=== PATIENT | male | born 1945 | race Caucasian/White ===

== ENCOUNTER 2016-10-28 12:50 | Inpatient (IN) | payer MEDICARE ==
[2016-10-28] MEDS ORDERED: NALOXONE 0.4 MG/ML 1 ML VIAL IV PRN (12:54)
--- NOTE | 2016-10-28 12:58 | ED ---
Neuro HPI - General Stated Complaint: CVA, TRANSFERED FROM [facility] Time Seen by Provider: 10/28/16 12:52 - History of Present Illness Is the patient presenting with stroke symptoms?: Yes Initial Comments: Patient presents with right-sided weakness. He was transferred from another facility. He had laboratory studies a CAT scan done already. They do not reveal any acute abnormalities. Patient complains of right-sided weakness which began last night and got progressively worse. The transferring facility did not feel he was a candidate for TPA. Patient denies any fever, chills, chest pain or shortness of breath. He has no belly or back pain. He has no nausea or vomiting. He has no change in vision or hearing. He has no neck pain or stiffness. He does state that he has right-sided weakness. - Related Data Allergies/Adverse Reactions: Allergies Allergy/AdvReac Type Severity Reaction Status Date / Time No Known Allergies Allergy Verified 10/28/16 12:57 Review of Systems ROS Statement: Those systems with pertinent positive or pertinent negative responses have been documented in the HPI. ROS Other: All systems not noted in ROS Statement are negative. General Exam General appearance: alert, in no apparent distress Head exam: Present: atraumatic, normocephalic, normal inspection Eye exam: Present: normal appearance, PERRL, EOMI. Absent: scleral icterus, conjunctival injection, periorbital swelling ENT exam: Present: normal exam, mucous membranes moist Neck exam: Present: normal inspection. Absent: tenderness, meningismus, lymphadenopathy Respiratory exam: Present: normal lung sounds bilaterally. Absent: respiratory distress, wheezes, rales, rhonchi, stridor Cardiovascular Exam: Present: regular rate, normal rhythm, normal heart sounds. Absent: systolic murmur, diastolic murmur, rubs, gallop, clicks GI/Abdominal exam: Present: soft, normal bowel sounds. Absent: distended, tenderness, guarding, rebound, rigid Extremities exam: Present: normal inspection, full ROM, normal capillary refill. Absent: tenderness, pedal edema, joint swelling, calf tenderness Back exam: Present: normal inspection Neurological exam: Present: alert, oriented X3, other (Right-sided weakness) Psychiatric exam: Present: normal affect, normal mood Skin exam: Present: warm, dry, intact, normal color. Absent: rash Disposition Clinical Impression: CVA (cerebral vascular accident) Disposition: ADMITTED IP TO THIS HOSP Condition: Serious Time of Disposition: 12:58
[2016-10-28] MEDS ORDERED: HYDROcodone/APAP 5-325MG 1 EACH TAB PO PRN (17:36)
[2016-10-28] MEDS: NICOTINE 14MG/24HR PATCH TRANSDERM SCH (20:36)
[2016-10-28] MEDS: ASPIRIN 325 MG TAB PO SCH (20:36)
[2016-10-28] MEDS: PANTOPRAZOLE 40 MG TABLET PO SCH (20:36)
[2016-10-28] MEDS ORDERED: FAMOTIDINE 20 MG TAB PO SCH (21:00)
[2016-10-28 21:19] VITALS: BMI 31.5
--- NOTE | 2016-10-28 21:37 | HP ---
DATE OF ADMISSION: 10/28/2016 CHIEF COMPLAINT: Weakness of the right side and dysarthria. HISTORY OF PRESENT ILLNESS: This 70 -year-old gentleman with a past medical history of multiple medical problems including myocardial infarction, CAD/stent, history of nicotine dependence and heavy alcohol intake not being followed by any primary care physician in the outpatient setting, apparently living in [place]. The patient noticing significant weakness this morning while awake and the patient had right-sided weakness. The patient had some dysarthria also. The weakness lasted last night and progressively got worsened. The patient was taken to [facility] this morning and the patient was felt to not be a candidate for TPA and subsequently because of lack of neurologist, the patient was transferred to [facility] and admitted for further evaluation and treatment. There is no history of fever, rigors, no history of headache, loss of consciousness or seizures. Past medical history of myocardial infarction, CAD/stent, history of ETOH, history of nicotine dependence. Medications are: 1. Multivitamins 1 p.o. daily. 3. Biotin 5 mg daily. ALLERGIES: None. FAMILY HISTORY: No history of heart disease or strokes in the family. SOCIAL HISTORY: History of smoking on a regular basis. REVIEW OF SYSTEMS: ENT: No diminishing hearing. Diminished vision. CARDIOVASCULAR SYSTEM: No angina or palpitations. RESPIRATORY: As mentioned earlier. GI: As mentioned earlier. GENITOURINARY: No dysuria. CENTRAL NERVOUS SYSTEM: As mentioned earlier. MUSCULOSKELETAL: As mentioned earlier. HEMATOLOGY/ONCOLOGY: No history of anemia. ENDOCRINE: No history of diabetes or hypothyroidism. CONSTITUTIONAL: As mentioned earlier. DERMATOLOGY: Negative. RHEUMATOLOGY: Negative. PSYCHIATRY: as mentioned earlier. PHYSICAL EXAMINATION: The patient is alert and oriented times three. Pulse 88, blood pressure 140/80, respiratory rate 16, temperature 97.2, pulse ox 94% on room air. HEENT: Conjunctivae normal. NECK: No jugular venous distention. CARDIOVASCULAR: S1, S2 muffled. RESPIRATORY : Breath sounds diminished at the bases. A few scattered rhonchi and crackles. ABDOMEN: Soft. Nontender. No mass palpable. LEGS: No edema. No swelling. Nervous system: Higher functions as mentioned earlier. Otherwise, upper motor neuron facial palsy on the right side present. Dysarthria present. Otherwise significant weakness of the right upper and lower limbs. Upper limbs are grade 0. Lower limbs grade 1, especially in the distal right leg. Otherwise no sensory abnormalities. Pulses are diminished. SKIN: No ulcers, rash or bleeding. LYMPHATICS: No lymph nodes palpable in the neck, axillae or groin. JOINTS: No active deforming arthropathy. LABS: Not available. ASSESSMENT: 1. Acute weakness and hemiplegia of the right side caused by left hemispheric lesion with acute stroke and acute cerebrovascular accident. 2. Dysarthria. 3. Gait dysfunction. 4. History of noncompliance. 5. History of coronary artery disease and stent. 6. History of myocardial infarction. 7. History of nicotine dependence. 8. History of ETOH. RECOMMENDATIONS AND DISCUSSION: In this 70-year-old gentleman who presented with multiple complex medical issues, we will monitor the patient closely. Continue the current medications. Continue symptomatic treatment. Otherwise, at this time, I recommend antiplatelet agents and I would also recommend speech pathology swallow evaluation. Other than that, neurology consultation, work up. Guarded prognosis because of multiple complex medical issues. Further recommendations to follow. I would also recommend the patient follow-up closely with primary physician. The importance of compliance stressed. Smoking and alcohol cessation also recommended. See orders for further details. Deep venous thrombosis prophylaxis. Further recommendations to follow. MTDD
[2016-10-28] MEDS: MELATONIN 3 MG TABLET PO SCH (23:36)
[2016-10-28] MEDS: HEPARIN SODIUM,PORCINE 5,000 UNIT/ML 1 ML VIAL SQ SCH (23:36)
--- NOTE | 2016-10-28 23:38 | P.CNNES ---
History of Present Illness Consult date: 10/28/16 Reason for Consult: Patient admitted with right sided weakness. History of Present Illness: This patient is a 70-year-old right-handed white male who apparently yesterday noted sudden symptoms of right-sided arm weakness and dysarthric speech. He did not seek any medical attention yesterday but did decide to go to the local emergency room in [facility]. Patient was evaluated in the emergency room at [facility] this morning. The ER physician there deemed him not to be a candidate for TPA and subsequently was transferred to [facility] for a complete neurological workup. Patient denies any previous history of TIA or stroke. Apparently computed tomography scan of the brain done at [facility] failed to reveal any acute changes. Patient states he has not been followed up with a regular primary care physician for years. 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 He is a poor historian and also has not been careful in taking care of his health over the last several years. He has a strong history of underlying alcohol abuse and nicotine dependence some. We reviewed the stroke risk factors with the patient today including smoking and myocardial infarction with heart disease. We would recommend that he be on 1 aspirin daily for secondary stroke prevention. Patient states that he continues to have significant weakness on his right side. He is unable to use his right arm. His speech is quite slurred today on examination. He also has a right facial droop. The patient is now admitted and neurology has been consulted for further evaluation and recommendations. Review of Systems Constitutional: Denies chills, Denies fever Eyes: denies blurred vision, denies pain Ears, nose, mouth and throat: Denies headache, Denies sore throat Cardiovascular: Denies chest pain, Denies shortness of breath Respiratory: Denies cough Gastrointestinal: Denies abdominal pain, Denies diarrhea, Denies nausea, Denies vomiting Musculoskeletal: Denies myalgias Integumentary: Denies pruritus, Denies rash Neurological: Reports change in mentation, Reports change in speech, Reports confusion, Reports paralysis, Reports tingling, Denies numbness, Denies weakness Psychiatric: Denies anxiety, Denies depression Endocrine: Denies fatigue, Denies weight change Past Medical History Past Medical History: Myocardial Infarction (DC) Additional Past Medical History / Comment(s): 4 HEART STENTS Last Myocardial Infarction Date:: 2002 History of Any Multi-Drug Resistant Organisms: None Reported Past Surgical History: Heart Catheterization, Heart Catheterization With Stent Date of Last Stent Placement:: 2002 Past Psychological History: No Psychological Hx Reported Smoking Status: Current every day smoker Past Alcohol Use History: Heavy Past Drug Use History: None Reported - Past Family History Mother Family Medical History: Myocardial Infarction (DC) Medications and Allergies Home Medications Medication Instructions Recorded Confirmed Type Biotin 5 mg PO DAILY 10/28/16 10/28/16 History Nisha-C 1 tab PO DAILY 10/28/16 10/28/16 History Multivitamins, Thera [Multivitamin 1 tab PO DAILY 10/28/16 10/28/16 History (formulary)] Allergies Allergy/AdvReac Type Severity Reaction Status Date / Time No Known Allergies Allergy Verified 10/28/16 13:07 Physical Examination - Vital Signs Vital Signs: Vital Signs Temp Pulse Pulse Resp BP BP BP 10/28/16 19:33 76 18 152/82 10/28/16 17:08 84 16 149/86 10/28/16 16:38 96.2 F L 80 18 171/82 200/124 10/28/16 16:31 73 16 10/28/16 13:18 88 16 146/80 Pulse Ox 10/28/16 19:33 94 L 10/28/16 17:08 97 10/28/16 16:38 98 10/28/16 16:31 100 10/28/16 13:18 94 L Intake and Output 10/28/16 10/28/16 10/28/16 06:59 14:59 22:59 Other: Weight 99.79 kg Patient Weight 10/29/16 06:59 Weight 99.79 kg - Constitutional General appearance: average body habitus, cooperative - EENT EENT: PERRL, mucous membranes moist - Respiratory Respiratory: lungs clear, normal breath sounds - Cardiovascular Cardiovascular: regular rate, normal S1, normal S2 Extremities: no peripheral edema bilaterally - Gastrointestinal Gastrointestinal: normoactive bowel sounds - Integumentary Integumentary: normal - Neurologic Cranial nerve examination: PERRL, EOMI, VFF, V1/V2/V3 grossly intact, tongue midline, intact gag reflex, intact corneal reflex, facial droop (Patient has a right upper motor neuron facial weakness.), normal palatal elevation Speech examination: intact Sensorimotor examination: intact Motor examination - right side: 08/03: biceps, triceps, wrist flexion, wrist extension, animation producer, hip flexors, knee extensors, dorsiflexion, toe extension (EHL) , plantarflexion Motor examination - left side: 5: biceps, triceps, wrist flexion, wrist extension, animation producer, hip flexors, knee extensors, dorsiflexion, toe extension (EHL) , plantarflexion Detailed sensory examination: intact Reflex and gait examination: intact Reflexes: 1+: ankle, bicep, knee, tricep - Musculoskeletal Musculoskeletal: no pain - Psychiatric Psychiatric: mood/affect appropriate, cooperative Assessment and Plan (1) Acute ischemic left middle cerebral artery (MCA) stroke Status: Acute Code(s): I63.512 - CEREB INFRC D/T UNSP OCCLS OR STENOS OF LEFT MID CEREB ART (2) Dysarthria Status: Acute Code(s): R47.1 - DYSARTHRIA AND ANARTHRIA (3) Hyperlipidemia Status: Acute Code(s): E78.5 - HYPERLIPIDEMIA, UNSPECIFIED (4) Coronary artery disease Status: Acute Code(s): I25.10 - ATHSCL HEART DISEASE OF [place] CORONARY ARTERY W/O ANG PCTRS (5) Nicotine dependence Status: Acute Code(s): F17.200 - NICOTINE DEPENDENCE, UNSPECIFIED, UNCOMPLICATED Plan: This patient is a 70-year-old male who was admitted to hospital today with symptoms of acute right-sided weakness. His symptoms began yesterday. He was evaluated in the emergency room at [facility] earlier this morning. The ER physician there deemed him not to be a candidate for TPA. He was outside of the 3 hour TPA window. He underwent a computed tomography scan which was reported to be negative for any acute changes. He was transferred to [facility] for further neurological workup. His neurological exam findings at this time indicate dense right-sided hemiparesis along with right facial droop. He has a dysarthric speech. This patient has suffered an acute left MCA stroke. We have recommended a complete stroke evaluation for the patient. We recommend placing him on aspirin therapy for secondary stroke prevention. We advised him to find a primary care physician for close medical checkup and follow-up once discharged. He is advised to seek medical attention for his alcohol abuse history. He is advised on smoking and alcohol cessation programs that would be beneficial for him. His overall prognosis at this time remains very guarded due to multiple complex medical issues. We will continue close neurological follow-up with the patient during this admission. As noted his overall prognosis at this time remains very guarded. Time with Patient: Greater than 30
[2016-10-29 02:46] LABS: Appearance,Urine Clear (Clear); Bilirubin,Urine Negative (Negative); Glucose,Urine (UA) Negative (Negative); Ketones,Urine Negative (Negative); Leukocyte Esterase,Urine Negative (Negative); Nitrite,Urine Negative (Negative); PH, Urine 7.5 (5.0-8.0); Protein,Urine Negative (Negative); Specific Gravity,Urine 1.014 (1.001-1.035); UA Billing (MACRO vs. MICRO) CHEM
[2016-10-29 06:49] LABS: Basophils # (A) 0.1 k/uL (0-0.2); Basophils % (A) 1 %; CH 32.1; CHCM 33.6; Eosinophils # (A) 0.2 k/uL (0-0.7); Eosinophils % (A) 3 %; HCT 47.7 % (39.0-53.0); HDW 2.36; HGB 15.7 gm/dL (13.0-17.5); Luc # (Auto) 0.17; Luc % (Auto) 2; Lymphocytes # (A) 2.3 k/uL (1.0-4.8); Lymphocytes % (A) 32 %; MCH 31.7 pg (25.0-35.0); MCV 95.9 fL (80.0-100.0); Mean Platelet Volume 7.4; Monocytes # (A) 0.5 k/uL (0-1.0); Monocytes % (A) 7 %; Neutrophils # (A) 3.9 k/uL (1.3-7.7); Neutrophils % (A) 55 %; RBC 4.97 m/uL (4.30-5.90); RDW 13.3 % (11.5-15.5); WBC 7.2 k/uL (3.8-10.6)
[2016-10-29 07:01] LABS: Anion Gap 8 mmol/L; Blood Urea Nitrogen 14 mg/dL (9-20); Carbon Dioxide 27 mmol/L (22-30); Chloride 104 mmol/L (98-107); Cholesterol 211 mg/dL (<200); Glucose 107 mg/dL (74-99); HDL Cholesterol 49 mg/dL (40-60); Non-African American GFR(MDRD) >60 (>60 ml/min/1.73 sqM); Potassium 4.4 mmol/L (3.5-5.1); Sodium 139 mmol/L (137-145); Triglycerides 136 mg/dL (<150)
[2016-10-29] MEDS: PANTOPRAZOLE 40 MG TABLET PO SCH (07:29)
--- NOTE | 2016-10-29 08:39 | US ---
EXAMINATION TYPE: US carotid duplex BILAT DATE OF EXAM: 10/29/2016 8:12 AM COMPARISON: NONE CLINICAL HISTORY: left hemispheric stroke.. EXAM MEASUREMENTS: RIGHT: Peak Systolic Velocity (PSV) cm/sec ----- Right CCA: 90.0 ----- Right ICA: 82.3 ----- Right ECA: 75.7 ICA/CCA ratio: 0.9 RIGHT: End Diastole cm/sec ----- Right CCA: 18.6 ----- Right ICA: 14.2 ----- Right ECA: 14.2 LEFT: Peak Systolic Velocity (PSV) cm/sec ----- Left CCA: 85.3 ----- Left ICA: 65.9 ----- Left ECA: 63.6 ICA/CCA ratio: 0.8 LEFT: End Diastole cm/sec ----- Left CCA: 18.0 ----- Left ICA: 12.8 ----- Left ECA: 11.3 VERTEBRALS (direction of flow): Right Vertebral: Antegrade Left Vertebral: Antegrade No significant stenosis seen, no elevated velocities, mild bilateral plaque noted. IMPRESSION: I DO NOT SEE EVIDENCE OF A HEMODYNAMICALLY SIGNIFICANT STENOSIS IN EITHER CAROTID SYSTEM. Criteria for Assigning % of Stenosis / Diameter reduction (Estimation based on the indirect measurements of the internal carotid artery velocities (ICA PSV). 1. Normal (no stenosis)=ICA PSV < 125 cm/s: ratio < 2.0: ICA EDV<40 cm/s. 2. Less than 50% stenosis=ICA PSV < 125 cm/s: ratio < 2.0: ICA EDV<40 cm/s. 3. 50 to 69% stenosis=ICA PSV of 125 to 230 cm/s: ration 2.0 ? 4.0: ICA EDV 40-100 cm/s. 4. Greater than 70% stenosis to near occlusion= ICA PSV > 230 cm/s: ratio > 4.0: ICA EDV > 100 cm/s. 5. Near occlusion= ICA PSV velocities may be low or undetectable: variable ratio and ICA EDV. 6. Total occlusion=unable to detect flow.
[2016-10-29] MEDS: ASPIRIN 325 MG TAB PO SCH (10:09)
[2016-10-29] MEDS: NICOTINE 14MG/24HR PATCH TRANSDERM SCH (10:10)
[2016-10-29] MEDS: MULTIVITAMINS, THERA 1 EACH TAB PO SCH (10:10)
[2016-10-29] MEDS: THIAMINE 100 MG TAB PO SCH (10:10)
[2016-10-29] MEDS: FOLIC ACID 1 MG TAB PO SCH (10:10)
[2016-10-29] MEDS: HEPARIN SODIUM,PORCINE 5,000 UNIT/ML 1 ML VIAL SQ SCH ×2 (10:11→20:04)
[2016-10-29] MEDS: SODIUM CHLORIDE 0.9% 1,000 ML IV SCH (12:15)
--- NOTE | 2016-10-29 14:09 | XR ---
EXAMINATION TYPE: XR chest 1V portable DATE OF EXAM: 10/29/2016 2:04 PM COMPARISON: NONE HISTORY: Shortness of breath TECHNIQUE: Single frontal view of the chest is obtained. FINDINGS: Prominence of the left hilum which may be slightly related to positioning. No pleural effu lorraine or pneumothorax. No overt failure. Underlying COPD suspected. There is thoracic aortic ectasia a nd atherosclerotic changes. Arthropathy of the shoulders. IMPRESSION: 1. No evidence of focal consolidation. Underlying COPD the suspected. Additionally there is prominenc e of left hilum which could be related to aortic ectasia. Underlying adenopathy or mass Short-term follow-up CT chest recommended.
--- NOTE | 2016-10-29 15:44 | P.PN ---
Subjective This patient is a 70-year-old right-handed white male who was seen in neurology consultation yesterday for evaluation of right arm weakness and dysarthric speech. Patient was initially evaluated at the emergency room at [facility]. He was seen by the ER physician and was deemed not to be a candidate for TPA. Due to lack of a neurologist there he was transferred to [facility] from the [facility] for further neurological assessment and recommendations. His neurological evaluation yesterday revealed him to have a dense right-sided hemiparesis as well as right upper motor neuron facial droop. He had dysarthric speech. He is being evaluated for acute left MCA stroke. He is scheduled to undergo MRI of the brain for further assessment. Patient has not had any regular follow-up with the primary care physician. He does have an extensive history of cardiac disease. He has had multiple stent placements in the past. He also has a history of underlying alcohol abuse and nicotine dependence. Patient continues to do about the same with no change in his neurological findings from yesterday. His neurological examination continues to show significant right- sided hemiparesis/hemiplegia. We will continue our stroke evaluation and give further recommendations depending on the results of his stroke workup. We're waiting his MRI of the brain to be done for further evaluation of acute stroke. His overall prognosis at this time remains very guarded. Objective - Vital Signs Vital signs: Vital Signs Temp 97.2 F L 10/29/16 10:58 Pulse 77 10/29/16 10:58 Resp 18 10/29/16 10:58 BP 158/89 10/29/16 10:58 Pulse Ox 96 10/29/16 10:58 Intake & Output 10/28/16 10/29/16 10/29/16 18:59 06:59 18:59 Intake Total 100 Output Total 300 600 Balance -200 -600 Weight 99.79 kg 88 kg Intake: Oral 100 Output: Urine 300 600 Other: Voiding Method Urinal # Voids 1 - Exam Physical examination: PHYSICAL EXAMINATION: Patient is resting comfortably in bed. VITAL SIGNS: Blood pressure is [158/89]. Heart rate is [77]. Respiration is [18] . Temperature is [97.2]. HEENT: Head is atraumatic, neck is supple, there were no carotid bruits. CHEST: Lungs are clear to auscultation and percussion. CARDIAC: S1, S2 normal rate and rhythm. There is no murmur. ABDOMEN: Soft and nontender. Bowel sounds are present. EXTREMITIES: There is no pedal edema. Peripheral pulses are present. Neurological examination: Patient's neurological examination is unchanged from yesterday. 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) stroke Status: Acute Code(s): I63.512 - CEREB INFRC D/T UNSP OCCLS OR STENOS OF LEFT MID CEREB ART (2) Dysarthria Status: Acute Code(s): R47.1 - DYSARTHRIA AND ANARTHRIA (3) Hyperlipidemia Status: Acute Code(s): E78.5 - HYPERLIPIDEMIA, UNSPECIFIED (4) Coronary artery disease Status: Acute Code(s): I25.10 - ATHSCL HEART DISEASE OF [place] CORONARY ARTERY W/O ANG PCTRS (5) Nicotine dependence Status: Acute Code(s): F17.200 - NICOTINE DEPENDENCE, UNSPECIFIED, UNCOMPLICATED Plan: This patient is a 70-year-old male who was seen yesterday on neurology consultation for evaluation of right-sided weakness and dysarthric speech. He was initially seen at [facility] in the ER. The ER physician deemed him not to be a TPA candidate. He was transferred to [facility] for further neurological evaluation and recommendations. His neurological exam findings yesterday revealed evidence of a dense right-sided hemiparesis. He also had right facial droop as well as dysarthric speech. His findings are suggesting acute left MCA stroke. He is scheduled to undergo MRI of the brain for further evaluation. Hopefully this MRI will be completed tomorrow. His neurological examination shows no significant change or improvement in his right-sided hemiplegia/hemiparesis. His speech also is significantly dysarthric. He is to continue on aspirin at this time for secondary stroke prevention while we await his test results. His overall prognosis at this time remains guarded. He should begin on all therapies including PT/OT and speech therapy evaluations. His overall prognosis at this time remains very guarded.
--- NOTE | 2016-10-29 16:24 | PN ---
DATE OF SERVICE: 10/29/2016 This is a 70-year-old gentleman who was admitted with a past medical history of multiple medical problems, was admitted with acute weakness with right hemiplegia. Patient had significant dysarthria. Patient also had dysphagia also. Dr. Guillermo is following the patient closely. Carotid Doppler was done today, showed no hemodynamically significant stenosis. PAST MEDICAL HISTORY: Reviewed. REVIEW OF SYSTEMS: NERVOUS SYSTEM: As mentioned earlier. CARDIOVASCULAR: No angina or palpitation. RESPIRATION: No cough. GI: As mentioned earlier. : No dysuria or urinary retention. Current medications are reviewed and include: [place] 5 mg q.6 p.r.n., aspirin 325 mg p.o. daily, Lipitor 40 mg, folic acid, heparin 500 subQ b.i.d., melatonin, multivitamin, Habitrol 14 daily, Protonix. PHYSICAL EXAM: Patient is alert and oriented x3 with dysarthria. Pulse 80, blood pressure 140/85, respirations 18, temperature is 97.2, pulse ox 94% on room air. HEENT: Conjunctivae normal. Oral mucosa moist. NECK: No jugular venous distension, no carotid bruit, no lymph node enlargement. CARDIOVASCULAR: S1, S2, muffled, no S3, no S4. RESPIRATORY: Breath sounds diminished at the bases. A few scattered rhonchi, no crackles. Abdomen is soft, nontender, no mass palpable. EXTREMITIES: Legs no edema, no swelling. NERVOUS SYSTEM: Right upper motor neuron facial paralysis present, weakness grade 0 in the upper limb and grade 1 to 2 in the right lower limb was present . SKIN: No ulcer, rash or bleeding. LYMPHATICS: No lymph node enlargement in the neck, axillae or groin. Labs are cholesterol is 211 and LDL is 135. ASSESSMENT: 1. Acute weakness and hemiplegia of the right side caused by left hemispheric lesion with acute stroke and cerebrovascular accident. 2. Dysarthria. 3. Hyperlipidemia. 4. Gait dysfunction. 5. History of noncompliance. 6. History of coronary artery disease and stent. 7. History of myocardial infarction. 8. History of continued ongoing nicotine dependence. 9. History of Ethyl alcohol. 10. FULL CODE. 11. Gait dysfunction. 12. Dysphagia. RECOMMENDATION: In this 70-year-old gentleman woman who presented with multiple complex medical issues, will monitor the patient closely. Continue with the current medication and symptomatic treatment. I would recommend to add Lipitor and Speech Pathology evaluation and also PT, OT evaluation, possible ECF rehab, cautious IV fluids. I will also obtain a baseline chest x-ray as well. Otherwise, we will follow the patient closely. Once again, the prognosis is guarded. Further recommendations to follow. MTDD
[2016-10-29] MEDS: ATORVASTATIN 40 MG TAB PO SCH (19:50)
[2016-10-29] MEDS: MELATONIN 3 MG TABLET PO SCH (19:51)
[2016-10-30] MEDS: PANTOPRAZOLE 40 MG TABLET PO SCH (04:49)
[2016-10-30 06:58] LABS: Anion Gap 12 mmol/L; Blood Urea Nitrogen 14 mg/dL (9-20); Calcium 8.7 mg/dL (8.4-10.2); Carbon Dioxide 21 mmol/L (22-30); Chloride 107 mmol/L (98-107); Glucose 91 mg/dL (74-99); Non-African American GFR(MDRD) >60 (>60 ml/min/1.73 sqM); Potassium 4.3 mmol/L (3.5-5.1); Sodium 140 mmol/L (137-145)
[2016-10-30 07:00] LABS: Basophils # (A) 0.1 k/uL (0-0.2); Basophils % (A) 1 %; CH 32.2; CHCM 33.8; Eosinophils # (A) 0.3 k/uL (0-0.7); Eosinophils % (A) 4 %; HCT 46.8 % (39.0-53.0); HDW 2.36; HGB 15.6 gm/dL (13.0-17.5); Luc # (Auto) 0.18; Luc % (Auto) 3; Lymphocytes # (A) 2.1 k/uL (1.0-4.8); Lymphocytes % (A) 31 %; MCH 31.9 pg (25.0-35.0); MCHC 33.3 g/dL (31.0-37.0); MCV 95.7 fL (80.0-100.0); Monocytes # (A) 0.5 k/uL (0-1.0); Monocytes % (A) 7 %; Neutrophils # (A) 3.9 k/uL (1.3-7.7); Neutrophils % (A) 56 %; RBC 4.89 m/uL (4.30-5.90); RDW 13.4 % (11.5-15.5); WBC (Perox) 7.07
[2016-10-30] MEDS ORDERED: ASPIRIN 300 MG SUPP RECTAL SCH (09:00)
--- NOTE | 2016-10-30 09:03 | MR ---
EXAMINATION TYPE: MR brain wo con DATE OF EXAM: 10/30/2016 8:39 AM COMPARISON: NONE HISTORY: Left hemispheric stroke, Rt side weakness on admission yesterday. TECHNIQUE: Multiplanar, multisequence imaging of the brain and brainstem is performed without IV cont rast. FINDINGS: Diffusion weighted images demonstrate round area of increased signal on diffusion weighted images wit h diminished signal on ADC mapping that shows low T1 and increased T2 signal in the left flores radia ta abutting the left lateral ventricle measuring approximately 2.1 cm AP diameter by 1.6 cm transvers jane seen best image 176 series 305 consistent with evolving acute/subacute infarct. There are several additional subcentimeter foci involving left frontal parietal lobes at this level and extending supe riorly as well as inferiorly to involve the posterior superior basal ganglia on axial image 152. There is no worrisome extra-axial fluid collection. There is ventricular and sulcal prominence consis tent with diffuse cerebral atrophy. There are focal and confluent areas of T2 hyperintensity seen thr oughout the white matter bilaterally. Lesions are nonspecific in appearance and distribution but most likely on basis of product of chronic small vessel ischemic change in patient of this age. Midline structures demonstrate normal morphology. The craniocervical junction appears within normal limits. Normal vascular flow voids are present. There is completely opacified right maxillary sinus f avor severe mucosal thickening there is mild mucosal thickening with rounded 1.8 cm T2 hyperintense l esion posterior inferior left maxillary sinus felt to reflect mucous retention cyst or polyp. There i s mild to moderate mucosal thickening involving ethmoid sinuses extending to involve the frontal sinu ses bilaterally, left greater than right noted. Increased fluid signal right mastoid air cells is pre sent. IMPRESSION: 1. Evolving acute infarcts left MCA distribution with largest focal infarct abutting the left lateral ventricle at level of flores radiata. 2. There is background of mild to moderate diffuse cerebral atrophy and severe chronic small vessel i schemic change. 3. Possible right-sided mastoiditis, clinical correlation advised. 4. Chronic paranasal findings as noted above.
--- NOTE | 2016-10-30 09:51 | P.CONS ---
History of Present Illness - Chief Complaint gait disturbance, right hemiplegia - History of Present Illness I had the op to see patient for inpatient rehab consultation with regard to gait disturbance and right hemiplegia. He was admitted to [facility] October 28 with acute onset right-sided weakness. MRI demonstrated attenuation left flores radiata. Carotid duplex negative. Seen by Dr. Aster Khan. PT, OT, MOLD SHIFTER ordered. Previous functional history:, As elicited from patient: 70-year-old right- handed white malewho is and lives in a second-floor apartment, steps, alone. Retired. States he eats out a lot. Otherwise independent with own laundry, standing shower, gait without device. Uses a moped for mobility. Does not have her regular doctor. Review of Systems Review of systems: ENT: Denies sneezes or discharge. Eyes: Denies discharge or photophobia. Cardiac: Denies chest pain or palpitation. Pulmonary: Denies cough or shortness of breath. Gastrointestinal: Denies nausea, emesis, constipation, diarrhea. Genitourinary: Denies discharge or frequency. Musculoskeletal: Denies muscle or bone aches. Neurologic: right-sided weakness but states sensation intact. Endocrine: Denies shakes or sweats. Oncology: Denies cancers. Dermatologic: Denies rash, itching, pruritus. ALLERGY/immunology: Denies sneezes, rashes. Past Medical History Past Medical History: Myocardial Infarction (OR) Additional Past Medical History / Comment(s): 4 HEART STENTS Last Myocardial Infarction Date:: 2002 History of Any Multi-Drug Resistant Organisms: None Reported Past Surgical History: Heart Catheterization, Heart Catheterization With Stent Date of Last Stent Placement:: 2002 Past Psychological History: No Psychological Hx Reported Smoking Status: Current every day smoker Past Alcohol Use History: Heavy Past Drug Use History: None Reported - Past Family History Mother Family Medical History: Myocardial Infarction (OR) Medications and Allergies Home Medications Medication Instructions Recorded Confirmed Type Biotin 5 mg PO DAILY 10/28/16 10/28/16 History Nisha-C 1 tab PO DAILY 10/28/16 10/28/16 History Multivitamins, Thera [Multivitamin 1 tab PO DAILY 10/28/16 10/28/16 History (formulary)] Allergies Allergy/AdvReac Type Severity Reaction Status Date / Time No Known Allergies Allergy Verified 10/28/16 13:07 Physical Exam Vitals: Vital Signs Temp Pulse Resp BP BP Pulse Ox 10/30/16 04:00 97.1 F L 64 18 144/88 94 L 10/29/16 23:56 82 16 111/77 96 10/29/16 19:57 97.7 F 74 18 167/84 95 10/29/16 14:48 97.4 F L 73 18 155/91 97 10/29/16 10:58 97.2 F L 77 18 158/89 96 Intake and Output 10/29/16 10/30/16 10/30/16 22:59 06:59 14:59 Output Total 500 Balance -500 Output: Urine 500 Other: # Voids 300 2 Weight 88.5 kg Skin: Good color, texture, turgor. General: overweight and comfortable appearance. Head: Normocephalic, atraumatic. Eyes: Symmetric. Pupils equal round. Ears: Symmetric. Hearing within normal limits. Mouth: Clear. Neck: Supple. Carotid without bruit. Cardiac: Regular rate and rhythm. Lungs: Clear anteriorly and posteriorly. Abdomen: Soft active nontenderoverweight. Extremities: Normal tone. Neurological: Mental status: Alert, cooperative, pleasant. Cranial nerves: Symmetric facial tone and trapezius. Motor: Normal strength and isolation left arm and leg. Right arm flaccid. Right leg with poor movement at ankle and toes. Sensation: Intact throughout. DTRs: Symmetric and equal throughout. Mobility: two-person assist to slight across from gurney to bed. Results CBC & Chem 7: 10/30/16 06:20 10/30/16 06:20 Labs: Abnormal Lab Results - Last 24 Hours (Table) 10/30/16 Range/Units 06:20 Carbon Dioxide 21 L (22-30) mmol/L MRI - head: report reviewed (attenuation left flores radiata) Assessment and Plan (1) Acute ischemic left middle cerebral artery (MCA) stroke Status: Acute Plan: impression: 1. Gait disturbance. 2. Right hemiplegia due to left flores radiata infarct. 3. Overweight. 4. History of OR. Comments and plan: At this time PT, OT, MOLD SHIFTER ordered. We'll follow with yourself. Safety concerns anticipated. Patient only able to identify a single brother, who is retired and lives alone, as a possible support for him upon discharge.we'll follow up on discharge planning with yourself.
[2016-10-30] MEDS: HEPARIN SODIUM,PORCINE 5,000 UNIT/ML 1 ML VIAL SQ SCH ×2 (10:08→21:33)
[2016-10-30] MEDS: NICOTINE 14MG/24HR PATCH TRANSDERM SCH (10:08)
[2016-10-30] MEDS: SODIUM CHLORIDE 0.9% 1,000 ML IV SCH (10:09)
[2016-10-30] MEDS: THIAMINE 100 MG TAB PO SCH (15:44)
[2016-10-30] MEDS: FOLIC ACID 1 MG TAB PO SCH (15:44)
[2016-10-30] MEDS: MULTIVITAMINS, THERA 1 EACH TAB PO SCH (15:44)
--- NOTE | 2016-10-30 18:52 | PN ---
DATE OF SERVICE: 10/30/2016 This 70-year-old gentleman who was admitted with acute stroke on the right side had significant lesion changes on MRI. Seen and evaluated the patient along with the nurse practitioner. Please refer to the nurse practitioner's notes and impressions document as ascribed for further information. The patient also has hyperlipidemia. Recommend PT, OT evaluation, possible ECF rehab. Prognosis guarded.
--- NOTE | 2016-10-30 19:24 | P.PN ---
Subjective Date of service 10/30/2016. Progress note being dictated for Dr. Bermudez. Interval history: This is a 70-year-old gentleman admitted with acute CVA of the right side with significant lesion changes per MRI, hyperlipidemia and multiple other medical issues. Significant dysarthria and dysphagia. Underwent modified barium swallow today with results pending .Evaluated by physical therapy and inpatient rehab recommended at discharge. Patient is also been evaluated by Dr. Toledo for inpatient rehab. Neuro workup in progress as per Dr. Khan. Past medical history reviewed Review of systems: NERVOUS: As mentioned earlier Respiratory: Denies any increased shortness of breath. No cough. Cardiac: Denies any chest pain, palpitations. GI: Denies any nausea, vomiting, or diarrhea. Denies any abdominal tenderness. : Denies any dysuria or urinary retention. Psychiatry: Denies any anxiety or depression. Active Medications Hydrocodone Bitart/Acetaminophen ([place] 5-325) 1 each PO Q6HR PRN PRN Reason: Pain Aspirin (Aspirin) 300 mg RECTAL DAILY [facility] Last Admin: 10/30/16 10:09 Dose: 300 mg Atorvastatin Calcium (Lipitor) 40 mg PO [facility] Last Admin: 10/29/16 19:50 Dose: Not Given Folic Acid (Folic Acid) 1 mg PO DAILY@1200 [facility] Last Admin: 10/30/16 15:44 Dose: 1 mg Heparin Sodium (Porcine) (Heparin) 5,000 unit SQ Q12HR [facility] Last Admin: 10/30/16 10:08 Dose: 5,000 unit Sodium Chloride (Saline 0.9%) 1,000 mls @ 50 mls/hr IV .Q20H [facility] Last Admin: 10/30/16 10:09 Dose: 50 mls/hr Melatonin (Melatonin) 3 mg PO [facility] Last Admin: 10/29/16 19:51 Dose: Not Given Multivitamins (Theragran) 1 each PO DAILY@1200 [facility] Last Admin: 10/30/16 15:44 Dose: 1 each Naloxone HCl (Narcan) 0.2 mg IV Q2M PRN PRN Reason: Opioid Reversal Nicotine (Habitrol 14mg/24hr Patch) 1 patch TRANSDERM DAILY [facility] Last Admin: 10/30/16 10:08 Dose: 1 patch Pantoprazole Sodium (Protonix) 40 mg PO AC[facility]BRKFST [facility] Last Admin: 10/30/16 04:49 Dose: Not Given Thiamine HCl (Vitamin B-1) 100 mg PO DAILY@1200 [facility] Last Admin: 10/30/16 15:44 Dose: 100 mg Objective - Vital Signs Vital signs: Vital Signs Temp 98.3 F 10/30/16 15:35 Pulse 79 10/30/16 15:35 Resp 18 10/30/16 15:35 BP 164/96 10/30/16 15:35 Pulse Ox 94 L 10/30/16 15:35 Intake & Output 10/30/16 10/30/16 10/31/16 06:59 18:59 06:59 Intake Total 980 Output Total 300 Balance -300 980 Weight 88.5 kg Intake: Intake, IV Titration 800 Amount Sodium Chloride 0.9% 1, 800 000 ml @ 50 mls/hr IV . Q20H [facility] Rx#:[id number] Oral 180 Output: Urine 300 Other: # Voids 2 - Exam PHYSICAL EXAM: VITAL SIGNS: [As above] GENERAL: [Sitting up in bed,] no acute distress, with dysarthria HEENT: [Pupils equal conjunctiva normal. Oral mucosa moist] NECK: [Supple, no JVD, no carotid bruit] RESPIRATORY EFFORT:[Normal] LUNGS: [Bilateral bases diminished, occasional scattered rhonchi, no crackles, no wheezes] CARDIOVASCULAR[regular S1 and S2, no murmurs rubs or gallops no edema] GI: [Abdomen soft, nontender, positive bowel sounds.] PSYCH: [Alert and oriented -3, mood and affect normal.] NEURO: Right upper motor neuron facial paralysis present, weakness grade 0 in the upper limb and grade +3 in the right lower limb present. - Labs CBC & Chem 7: 10/30/16 06:20 10/30/16 06:20 Labs: Abnormal Lab Results - Last 24 Hours (Table) 10/30/16 Range/Units 06:20 Carbon Dioxide 21 L (22-30) mmol/L Assessment and Plan Plan: 1. Acute weakness with him aplasia of the right caused by left hemispheric lesion with acute stroke and CVA.Significant lesion changes per MRI 2. [Dysarthria]. 3. [Dysphasia, MBS results pending]. 4. [Hyperlipidemia]. 5. [Gait dysfunction]. 6. [History of noncompliance]. 7. [CAD with stent, NM]. 8. Continued ongoing nicotine dependence 9. History of EtOH abuse 10. Gait dysfunction Plan: Continue on current medication regime, statin, aspirin, monitoring and symptomatic treatment. PT/OT .As mentioned above inpatient rehab recommended at discharge per physical therapy with Dr. Toledo evaluating patient as well. MBS results pending. Follow closely with neurology. Prognosis guarded given multiple complex medical issues. Further recommendations to follow. The impression and plan of care has been dictated as directed. : I performed a H&P examination of this patient and discussed the same with the dictator. I agree with the dictator's note. Any additional findings/opinions/ etc. will be noted.
[2016-10-30] MEDS: ATORVASTATIN 40 MG TAB PO SCH (21:33)
[2016-10-30] MEDS: MELATONIN 3 MG TABLET PO SCH (21:33)
--- NOTE | 2016-10-30 22:32 | P.PN ---
Subjective This patient is a 70-year-old right-handed white male who was seen in neurology consultation yesterday for evaluation of right arm weakness and dysarthric speech. Patient was initially evaluated at the emergency room at [facility]. He was seen by the ER physician and was deemed not to be a candidate for TPA. Due to lack of a neurologist there he was transferred to [facility] from the [facility] for further neurological assessment and recommendations. His neurological evaluation yesterday revealed him to have a dense right-sided hemiparesis as well as right upper motor neuron facial droop. He had dysarthric speech. He is being evaluated for acute left MCA stroke. He is scheduled to undergo MRI of the brain for further assessment. Patient has not had any regular follow-up with the primary care physician. He does have an extensive history of cardiac disease. He has had multiple stent placements in the past. He also has a history of underlying alcohol abuse and nicotine dependence. Patient continues to do about the same with no change in his neurological findings from yesterday. His neurological examination continues to show significant right- sided hemiparesis/hemiplegia. Patient underwent MRI of the brain today. Results of the MRI indicate acute left MCA stroke. Patient was seen by Dr. Toledo today for possible inpatient rehab. His goal therapy is recommending inpatient rehab for this patient with significant right-sided hemiparesis. We will continue our stroke evaluation and give further recommendations depending on the results of his stroke workup. We're waiting his MRI of the brain to be done for further evaluation of acute stroke. His overall prognosis at this time remains very guarded. Objective - Vital Signs Vital signs: Vital Signs Temp 98.3 F 10/30/16 15:35 Pulse 79 10/30/16 15:35 Resp 18 10/30/16 15:35 BP 164/96 10/30/16 15:35 Pulse Ox 94 L 10/30/16 15:35 Intake & Output 10/30/16 10/30/16 10/31/16 06:59 18:59 06:59 Intake Total 980 Output Total 300 Balance -300 980 Weight 88.5 kg Intake: Intake, IV Titration 800 Amount Sodium Chloride 0.9% 1, 800 000 ml @ 50 mls/hr IV . Q20H [facility] Rx#:[id number] Oral 180 Output: Urine 300 Other: # Voids 2 - Exam Physical examination: PHYSICAL EXAMINATION: Patient is resting comfortably in bed. VITAL SIGNS: Blood pressure is [164/96]. Heart rate is [79]. Respiration is [18] . Temperature is [98.3]. HEENT: Head is atraumatic, neck is supple, there were no carotid bruits. CHEST: Lungs are clear to auscultation and percussion. CARDIAC: S1, S2 normal rate and rhythm. There is no murmur. ABDOMEN: Soft and nontender. Bowel sounds are present. EXTREMITIES: There is no pedal edema. Peripheral pulses are present. Neurological examination: Patient's neurological examination is unchanged from yesterday. Patient continues to demonstrate mild dysarthric speech which is slightly improved. He has a dense right-sided hemiparesis. - Labs CBC & Chem 7: 10/30/16 06:20 10/30/16 06:20 Labs: Abnormal Lab Results - Last 24 Hours (Table) 10/30/16 Range/Units 06:20 Carbon Dioxide 21 L (22-30) mmol/L Assessment and Plan (1) Acute ischemic left middle cerebral artery (MCA) stroke Status: Acute Code(s): I63.512 - CEREB INFRC D/T UNSP OCCLS OR STENOS OF LEFT MID CEREB ART (2) Dysarthria Status: Acute Code(s): R47.1 - DYSARTHRIA AND ANARTHRIA (3) Hyperlipidemia Status: Acute Code(s): E78.5 - HYPERLIPIDEMIA, UNSPECIFIED (4) Coronary artery disease Status: Acute Code(s): I25.10 - ATHSCL HEART DISEASE OF [place] CORONARY ARTERY W/O ANG PCTRS (5) Nicotine dependence Status: Acute Code(s): F17.200 - NICOTINE DEPENDENCE, UNSPECIFIED, UNCOMPLICATED Plan: This patient is a 70-year-old male being evaluated for acute stroke. He presented with dysarthric speech and right-sided hemiparesis. He underwent MRI of the brain today the results of which were reviewed and are as noted above. MRI reveals evidence of any acute left MCA stroke. Carotid Doppler study was negative for any carotid artery stenosis. He is being evaluated for inpatient rehab placement. Patient to continue on aspirin daily for secondary stroke prevention. His overall prognosis at this time remains very guarded.
[2016-10-31 06:20] LABS: Basophils # (A) 0.1 k/uL (0-0.2); Basophils % (A) 1 %; CH 32.6; CHCM 34.4; Eosinophils # (A) 0.3 k/uL (0-0.7); Eosinophils % (A) 4 %; HCT 47.6 % (39.0-53.0); HDW 2.39; HGB 16.1 gm/dL (13.0-17.5); Luc # (Auto) 0.17; Luc % (Auto) 3; Lymphocytes # (A) 2.2 k/uL (1.0-4.8); Lymphocytes % (A) 34 %; MCH 32.2 pg (25.0-35.0); MCHC 33.8 g/dL (31.0-37.0); MCV 95.2 fL (80.0-100.0); Mean Platelet Volume 7.7; Monocytes # (A) 0.5 k/uL (0-1.0); Monocytes % (A) 7 %; Neutrophils # (A) 3.4 k/uL (1.3-7.7); Neutrophils % (A) 52 %; RDW 13.5 % (11.5-15.5); WBC 6.6 k/uL (3.8-10.6)
[2016-10-31 06:33] LABS: Anion Gap 8 mmol/L; Blood Urea Nitrogen 12 mg/dL (9-20); Calcium 8.8 mg/dL (8.4-10.2); Carbon Dioxide 21 mmol/L (22-30); Chloride 108 mmol/L (98-107); Glucose 106 mg/dL (74-99); Non-African American GFR(MDRD) >60 (>60 ml/min/1.73 sqM); Potassium 3.9 mmol/L (3.5-5.1); Sodium 137 mmol/L (137-145)
[2016-10-31] MEDS: SODIUM CHLORIDE 0.9% 1,000 ML IV SCH (06:35)
[2016-10-31] MEDS: PANTOPRAZOLE 40 MG TABLET PO SCH (06:36)
[2016-10-31] MEDS: NICOTINE 14MG/24HR PATCH TRANSDERM SCH (08:26)
[2016-10-31] MEDS: MULTIVITAMINS, THERA 1 EACH TAB PO SCH (08:26)
[2016-10-31] MEDS: THIAMINE 100 MG TAB PO SCH (08:26)
[2016-10-31] MEDS: FOLIC ACID 1 MG TAB PO SCH (08:26)
[2016-10-31] MEDS: HEPARIN SODIUM,PORCINE 5,000 UNIT/ML 1 ML VIAL SQ SCH (08:27)
[2016-10-31] MEDS ORDERED: ASPIRIN 325 MG TAB PO SCH (09:45)
--- NOTE | 2016-10-31 12:57 | DS ---
DATE OF ADMISSION: 10/28/2016 DATE OF DISCHARGE: FINAL DIAGNOSES: 1. Acute weakness on the right side with possible left hemispheric lesion with acute stroke and cerebrovascular accident. 2. Dysarthria. 3. Some dysphagia secondary to acute stroke. 4. Expressive dysphasia. 5. Hyperlipidemia. 6. Gait dysfunction. 7. History of noncompliance. 8. Coronary artery disease with stent, myocardial infarction. 9. Continued ongoing nicotine dependence. 10. History of EtOH. 11. FULL CODE. 12. Change in mental status with metabolic encephalopathy. DISCHARGE DISPOSITION: The patient will be discharged in stable condition with guarded prognosis. HISTORY OF PRESENT ILLNESS: This 70-year-old gentleman with a past medical history of multiple medical problems admitted with significant weakness of the right side of the body. MRI showed left hemispheric lesion. Treated symptomatically. Patient seen by Neurology. Patient improved significantly. On exam, vitals are stable. CARDIOVASCULAR SYSTEM: S1, S2 muffled. ABDOMEN: Soft. NERVOUS SYSTEM: Significant hemiplegia on the right side. Dr. Toledo saw the patient for inpatient rehab. The patient will be transferred to inpatient rehab in a stable condition with guarded prognosis with continued monitoring. Cholesterol was 211, LDL was 135. RECOMMENDED DISCHARGE ADVICE: 1. Diet is cardiac. 2. Activity limited until followup. 3. Follow up with Dr. Bills in 2 to 3 days after discharge from [facility]. 4. Follow up with Dr. Gina Guillermo in 2 weeks. The medications are: 1. Aspirin 325 mg daily. 2. Lipitor 40 mg q.h.s. 3. Folic acid 1 mg daily. 4. [place] 5 mg q.6 p.r.n. 5. Melatonin 3 mg q.h.s. p.r.n. 6. Multivitamin 1 p.o. daily. 7. Habitrol 14 daily. 8. Protonix 40 mg p.o. daily. 9. Vitamin B1, 100 mg p.o. daily.
[2016-10-31 13:37] VITALS: BP 139/87; PULSE 74; RESP 18; TEMP 96.5
--- NOTE | 2016-11-03 22:35 | EEG ---
DATE OF SERVICE: 10/30/2016 INDICATIONS FOR EXAMINATION: This patient is a 70 -year-old male admitted to the hospital with acute right sided hemiparesis and dysarthric speech. Patient with acute stroke findings. AGE: 70Y EEG FINDINGS: A routine 21 channel awake digital EEG recording was accomplished utilizing the 10-20 international system with bipolar and referential montages. The background activity in the most alert resting state consists of a low to medium amplitude, fairly well developed and well sustained 7-8 Hz activity over the posterior head regions. This posterior rhythm attenuates to eye opening. There is a small amount of low amplitude 18-20 Hz beta activity seen maximally over the anterior head regions. Muscle and movement artifact was observed on a few occasions during the tracing. Hyperventilation was not performed. Photic stimulation at flash frequencies of 2-30 Hz produced a good symmetrical occipital driving response. No epileptiform discharges were seen. IMPRESSION: This EEG is within normal limits for the patient's age. The EEG failed to reveal any focal, lateralized or epileptiform abnormalities. Clinical correlation is recommended.
== END 2016-10-31 16:18 | DRG 64 ==
LOC: EC 12:50 → 6SEL 12:54
PROVIDERS: ADMIT Internal Medicine; ATTEND Internal Medicine
DX: I63.9 Cerebral infarction, unspecified (principal); G93.41 Metabolic encephalopathy; G81.91 Hemiplegia, unspecified affecting right dominant side; R13.10 Dysphagia, unspecified; R47.1 Dysarthria and anarthria; E66.3 Overweight; E78.5 Hyperlipidemia, unspecified; F17.200 Nicotine dependence, unspecified, uncomplicated; I25.10 Atherosclerotic heart disease of native coronary artery without angina pectoris; I25.2 Old myocardial infarction; R29.810 Facial weakness; R26.9 Unspecified abnormalities of gait and mobility; Z68.28 Body mass index [BMI] 28.0-28.9, adult; Z91.19 Patient's noncompliance with other medical treatment and regimen; Z95.5 Presence of coronary angioplasty implant and graft; Z82.49 Family history of ischemic heart disease and other diseases of the circulatory system
CPT/HCPCS: 70551; 71010; 80048; 80061; 80306; 81003; 84484; 85025; 93880; 95816; 99285